=== PATIENT | female | born 1995 | race Caucasian/White ===

== ENCOUNTER 2018-07-11 07:38 | Emergency (ER) | payer BC ==
[2018-07-11 09:41] LABS: APPEARANCE,URINE SLIGHTLY-CLOUDY; BILIRUBIN,URINE NEGATIVE (NEGATIVE); COLOR,URINE YELLOW; GLUCOSE, URINE NEGATIVE (NEGATIVE); KETONES,URINE NEGATIVE (NEGATIVE); LEUKOCYTE ESTERASE,URINE NEGATIVE (NEGATIVE); NITRITE,URINE NEGATIVE (NEGATIVE); PROTEIN,URINE NEGATIVE (NEGATIVE); URINE SPECIFIC GRAVITY 1.025
--- NOTE | 2018-07-11 09:51 | ER Document Report ---
ED General - General Chief Complaint: Abdominal Pain Stated Complaint: ABDOMINAL PAIN/VAGINAL BLEEDING Time Seen by Provider: 07/11/18 08:14 - HPI Notes: Patient is a 23-year-old female that presents to the emergency department for chief complaint of abdominal pain. Patient reports suprapubic abdominal pain for the last 2-3 weeks. She states the pain is been constant and dull. The pain is starting to increase which is why she came into the emergency room. She denies any associated nausea, vomiting or fevers. She does state that for the last week she has had 1-2 episodes of diarrhea daily. Patient was seen in [place] about a week ago and prescribed a pelvic ultrasound which was scheduled for later today. She is sexually active but denies any vaginal discharge or concern for STD. Patient states she has been on her menstrual cycle for the last 2-3 weeks. She states she is saturating 3-4 heavy pads a day. She states today the bleeding has decreased. She denies any history of this functional uterine bleeding or atypical menses in the past. Patient has had a negative test at home. Past Medical History: Asthma Past Surgical History: Negative Social History: Denies drugs alcohol and tobacco Family History: Reviewed and noncontributory for presenting illness Allergies: Reviewed, see documented allergy list. REVIEW OF SYSTEMS: CONSTITUTIONAL : No fever No chills No diaphoresis No recent illness EENT: No vision changes No congestion No sore throat CARDIOVASCULAR: No chest pain No palpitations RESPIRATORY: No shortness of breath No cough No difficulty breathing GASTROINTESTINAL: abdominal pain No nausea No vomiting No diarrhea GENITOURINARY: No dysuria No hematuria No difficulty urinating Vaginal bleeding MUSCULOSKELETAL: No back pain No leg pain No arm pain SKIN: No rashes No lesions LYMPHATIC: No swollen, enlarged glands. NEUROLOGICAL: No lightheadedness No headache No weakness No paresthesias PSYCHIATRIC: No anxiety No depression PHYSICAL EXAMINATION: Vital signs reviewed, nursing noted reviewed. GENERAL: Well-appearing, well-nourished and in no acute distress. HEAD: Atraumatic, normocephalic. EYES: Eyes appear normal, extraocular movements intact, sclera anicteric, conjunctiva are normal. ENT: nares patent, oropharynx clear without exudates. Moist mucous membranes. NECK: Normal range of motion, supple without lymphadenopathy LUNGS: Breath sounds clear to auscultation bilaterally and equal. No wheezes rales or rhonchi. HEART: Regular rate and rhythm without murmurs ABDOMEN: Soft, mild suprapubic and right adnexal tenderness. No rebound, guarding, or rigidity. No masses appreciated. : Moderate vaginal bleeding. No external lesions. No cervical motion tenderness. No vaginal discharge. Normal left adnexal exam. Tender right adnexal exam. No uterine tenderness. EXTREMITIES: Nontender, good range of motion, no pitting or edema. NEUROLOGICAL: No focal neurological deficits. Moves all extremities spontaneously Motor and sensory grossly intact on exam. PSYCH: Normal mood, normal affect. SKIN: Warm, Dry, normal turgor, no rashes or lesions noted on exposed skin - Related Data Allergies/Adverse Reactions: No Known Allergies Allergy (Unverified 07/11/18 07:41) Past Medical History - Social History Smoking Status: Former Smoker Frequency of alcohol use: None Drug Abuse: None Family History: Reviewed & Not Pertinent Patient has suicidal ideation: No Patient has homicidal ideation: No Pulmonary Medical History: Reports: Hx Asthma Renal/ Medical History: Denies: Hx Peritoneal Dialysis Physical Exam - Vital signs Vitals: Temp Pulse Resp BP Pulse Ox 98.7 F 94 16 112/59 L 98 07/11/18 07:43 07/11/18 07:43 07/11/18 07:43 07/11/18 07:43 07/11/18 07:43 Course - Re-evaluation Re-evalutation: 07/11/18 13:47 Vitals reviewed. Nursing notes reviewed. Patient has some right adnexal tenderness that is mild on pelvic exam. She has no cervical motion tenderness to suggest PID. Her ultrasound is unremarkable. Urine is negative. Patient is positive for chlamydia and will be treated with antibiotics. I counseled her on safe sex practices. She will be referred to gynecology for follow-up. Stable at discharge. Laboratory 07/11/18 07/11/18 07/11/18 09:01 12:01 12:01 Urine Color YELLOW Urine Appearance SLIGHTLY-CLOUDY Urine pH 6.0 Ur Specific [place] 1.025 Urine Protein NEGATIVE Urine Glucose (UA) NEGATIVE Urine Ketones NEGATIVE Urine Blood LARGE H Urine Nitrite NEGATIVE Urine Bilirubin NEGATIVE Urine Urobilinogen 2.0 H Ur Leukocyte Esterase NEGATIVE Urine WBC (Auto) 4 Urine RBC (Auto) 154 Squamous Epi Cells Auto 1 Urine Mucus (Auto) MANY Urine Ascorbic Acid NEGATIVE Urine HCG, Qual NEGATIVE Trichomonas (Wet Prep) NO TRICHOMONAS SEEN Vaginal WBC RARE WBCS SEEN Vaginal RBC 4+ RBCS SEEN Vaginal Yeast NO YEAST SEEN Chlamydia DNA (PCR) DETECTED H N.gonorrhoeae DNA (PCR) NOT DETECTED Transvaginal US 07/11/18 09:48 IMPRESSION: NORMAL TRANSVAGINAL PELVIC ULTRASOUND. - Vital Signs Vital signs: Temp Pulse Resp BP Pulse Ox 98.7 F 94 16 112/59 L 98 07/11/18 07:43 07/11/18 07:43 07/11/18 07:43 07/11/18 07:43 07/11/18 07:43 - Laboratory Laboratory results interpreted by me: 07/11/18 07/11/18 09:01 12:01 Urine Blood LARGE H Urine Urobilinogen 2.0 H Chlamydia DNA (PCR) DETECTED H Discharge - Discharge Clinical Impression: Chlamydia, Vaginal bleeding, Pelvic pain Condition: Stable Disposition: HOME, SELF-CARE Instructions: Chlamydia ([facility]), Vaginal Bleeding ([facility]) Additional Instructions: Please return to the emergency department if you have any worsening, or concern of your symptoms. Please return to the emergency department if you develop chest pain, difficulty breathing, severe abdominal pain, or ongoing vomiting. Please follow-up with your primary care physician in 2-3 days and any other recommended physicians. If prescribed, take all medications as directed. If you have any questions or concerns do not hesitate to return the emergency department for evaluation. Abstain from any sexual intercourse for 1 week. Do not have sexual intercourse with the same partner until they are treated for chlamydia. Referrals: [facility] [Provider Group] - Follow up in 3-5 days
[2018-07-11 12:11] LABS: RBCS (WET MOUNT) 4+ RBCS SEEN; T.VAGINALIS (WET MOUNT) NO TRICHOMONAS SEEN; WBCS (WET MOUNT) RARE WBCS SEEN; YEAST (WET MOUNT) NO YEAST SEEN
--- NOTE | 2018-07-11 12:15 | RADIOLOGY REPORT (SQ) ---
EXAM DESCRIPTION: U/S NON OB PEL TV W/DOPPLER COMPLETED DATE/TIME: 07/11/2018 11:39 am REASON FOR STUDY: right adnexal pain, vaginal bleeding COMPARISON: None. TECHNIQUE: Dynamic and static grayscale images acquired of the pelvis via transvaginal approach and recorded on PACS. Additional selected color Doppler and spectral images recorded. LIMITATIONS: None. FINDINGS: UTERUS: Contour normal. No mass. ENDOMETRIAL STRIPE: 1.7 cm. No nabothian cysts. CERVIX: No nabothian cysts. RIGHT OVARY AND DOPPLER: Normal size. No worrisome masses. Normal arterial vascular flow without evid ence for torsion. LEFT OVARY AND DOPPLER: Normal size. No worrisome masses. Normal arterial vascular flow without evide nce for torsion. FREE FLUID: None noted. OTHER: No other significant finding. MEASUREMENTS: UTERUS: 7.4 x 4.3 x 3.6 cm. ENDOMETRIAL STRIPE: 5 mm. RIGHT OVARY: 3.3 x 1.6 x 1.4 cm. LEFT OVARY: 2.8 x 3 x 1.5 cm. IMPRESSION: NORMAL TRANSVAGINAL PELVIC ULTRASOUND. TECHNICAL DOCUMENTATION: JOB ID: [id number]- All Rights Reserved Rev-10/13 Reading location - IP/workstation name: [email or web address]
[2018-07-11 13:38] LABS: CHLAM PCR DETECTED (NOT DETECT); GON PCR NOT DETECTED (NOT DETECT)
[2018-07-11] MEDS ORDERED: AZITHROMYCIN 1 GM SUSP PACKET PO ONE (13:45)
[2018-07-11 13:46] VITALS: BP 115/60
[2018-07-11] MEDS ORDERED: CEFTRIAXONE INJ 250 MG VIAL IM ONE (13:51)
[2018-07-11] MEDS ORDERED: LIDOCAINE 1% INJ-PF (10 MG/ML) 30 ML SDV ONE (13:53)
== END 2018-07-11 14:35 | disposition home or self-care (01) ==
LOC: ER 07:38
DX: A74.9 Chlamydial infection, unspecified (principal); N93.9 Abnormal uterine and vaginal bleeding, unspecified; R10.2 Pelvic and perineal pain; R10.9 Unspecified abdominal pain; R10.30 Lower abdominal pain, unspecified; R19.7 Diarrhea, unspecified; Z87.891 Personal history of nicotine dependence
CPT/HCPCS: 99284; 96372; 87210; 81025; 81001; 87491; 87591; 76830; 93976; J3490; Q0144; J0696